=== PATIENT | female | born 1960 | race Caucasian/White ===

== ENCOUNTER 2017-06-20 01:16 | Emergency (ER) | payer OTHER ==
[2017-06-20] MEDS ORDERED: NORMAL SALINE 500 ML IV.SOLN IV SCH (01:25)
--- NOTE | 2017-06-20 01:35 | ED Physician Documentation ---
Syncope/Near Syncope - HISTORIAN Historian: patient, spouse - HPI Stated Complaint: syncope Chief Complaint: Syncope Additional Information: was at [email or web address], laying cards. Drinking beer, Does not drink regularly. said she had at least 5 beers. he did not witness. she was playing cards and slumped forward on the table. the other players helped her to lay down on the floor, they called EMS. She remembers playing cards and descibes her night. She remembers people talking to her on the floor. she remembers EMS coming and picking her up. She has no complaints now. She did not injure herself. She still speaks as if she is inibriated. Her agrees, stating they had too much to drink. she feels a little nauseated now. Her BP is 87/52 and HR 50's. 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 She states her BP is always 90/50 and her HR is always in the 50's. assymptomatic. Witnessed: Yes Witnessed By: bystander Position at Time of Episode: sitting Symptoms Prior to Episode: none Character of Events(s): collapsed Last known Well Code/Unknown Code: Known Symptoms after Event: denies: confused after event, incontinent of urine, incontinent of stool, breathing shallow, breathing stopped, lost pulse, dextrostick low SPEECH PATHOLOGY ASSISTANT, given D50 SPEECH PATHOLOGY ASSISTANT Location of Injury: none Associated Symptoms: feels back to normal, other (but is still intoxicated) Further Comments: no - ROS CONST: denies: recent illness, fever EYES/ENT: none GI/: denies: diarrhea MS/SKIN/LYMPH: denies: joint pain NEURO/PSYCH: denies: confusion - PAST HX Cardiac Disease: none PE Risk Factors: none Surgeries/Procedures: none Allergies/Adverse Reactions: Allergies Allergy/AdvReac Type Severity Reaction Status Date / Time No Known Allergies Allergy Verified 06/20/17 01:21 Home Medications: Ambulatory Orders Medication Instructions Recorded NK [NK] 06/20/17 - SOCIAL HX Smoking History: non-smoker Alcohol Use: rarely Drug Use: none - FAMILY HX Family History: none - VITAL SIGNS Vital Signs: Vital Signs Temp Pulse Resp BP Pulse Ox 56 L 16 88/50 99 06/20/17 01:21 06/20/17 01:21 06/20/17 01:21 06/20/17 01:21 - REVIEWED ASSESSMENTS Nursing Assessment Reviewed: Yes Vitals Reviewed: Yes Progress - Results/Orders Results/Orders: lying back supine she is feeling nauseated. and has vomited now. will give Zofran. I don't believe she has any organic problem. I believe she has had too much alcohol for her tonight, and is way past her normal bedtime. will finish giving her the liter of fluid started by EMS and discharge her home. Syncope Physical Exam - Physical Exam General Appearance: no acute distress, alert (but drowsy, she is normally asleep 3 hrs earlier) EENT: nml eye inspection, PERRL Neck/Back: neck supple, non-tender, no carotid bruit Respiratory: no resp distress, chest non-tender, breath sounds normal CVS: bradycardia (normal for her) Abdomen: non-tender Skin: warm/dry, normal color Extremities: non-tender, normal range of motion, no evidence of injury, no edema - Neuro/Psych Higher Functions: alert, oriented x3, no evidence of acute CVA, mood/affect nml (speaks like a person who is intoxicated.) Cranial Nerves: nml as tested Sensorimotor: nml motor response, nml sensory response Discharge Clincal Impression: Syncope and collapse, Hypotension, chronic, Bradycardia Alcohol intoxication Qualifiers: Complication of substance-induced condition: uncomplicated Qualified Code(s): F10.920 - Alcohol use, unspecified with intoxication, uncomplicated Home Medications: Ambulatory Orders NK [NK] 06/20/17 Condition: Stable Disposition: 01 HOME, SELF-CARE Decision to Admit: NO Date of Decison to Admit: 06/20/17 Decision Time: 01:43
[2017-06-20] MEDS ORDERED: ONDANSETRON HCL/PF 4 MG/ 2ML VIAL ONE (01:39)
[2017-06-20] MEDS ORDERED: ONDANSETRON HCL/PF 4 MG/ 2ML VIAL IVP ONE (01:44)
[2017-06-20 02:23] VITALS: BP 132/71
== END 2017-06-20 02:15 | disposition home or self-care (01) ==
LOC: ED 01:16
DX: R00.1 Bradycardia, unspecified (principal); I95.9 Hypotension, unspecified; F10.920 Alcohol use, unspecified with intoxication, uncomplicated
CPT/HCPCS: J2405 ×2; 96372; 99284